=== PATIENT | female | born 1995 | race Hispanic/Latino ===

== ENCOUNTER 2020-03-18 16:45 | Emergency (ER) | payer SELFPAY ==
[2020-03-18 17:17] LABS: Hemoglobin 13.5 g/dL (12.0-16.0); Mean Corpuscular HGB CONC 33.4 g/dL (32.0-36.0); Mean Corpuscular Hemoglobin 32.5 pg (27.0-31.0); Mean Corpuscular Volume 97.3 fL (78.0-98.0); Platelet Count 265 thou/uL (130-400); RBC Distribution Width 14.6 % (11.5-14.5); Red Blood Cell (RBC) Count 4.15 mill/uL (4.20-5.40)
[2020-03-18 17:39] LABS: Bilirubin Negative (Negative); Blood, Urine Negative (Negative); Clarity Clear (Clear); Glucose, Urine (Dipstick) Normal (Negative); Leukocyte Negative Leu/uL (Negative); Nitrite Negative (Negative); Protein, Urine (Dipstick) Negative (Neg-Trace); Urobilinogen Normal mg/dL (Less than 2)
[2020-03-18 17:41] LABS: Band 4 % (5-11); Eosinophils 1 % (0-10); Lymphocytes 55 % (21-51); MDiff Complete? YES; Monocytes 7 % (0-10); Neutrophil 15 % (42-75); Platelet Morphology Comment Appears Adequate; Polychromasia SLIGHT = 2-3 cells (100X) (0-2/hpf); Reactive Lymphocytes 16 % (0-10); Target Cells SLIGHT = 2-5 cells (100X) (0-1/hpf)
[2020-03-18 17:44] LABS: ALT (SGPT) 79 U/L (8-55); AST (SGOT) 164 U/L (5-34); Albumin 4.4 g/dL (3.5-5.0); Alkaline Phosphatase 252 U/L (40-110); Anion Gap 20 mmol/L (10-20); BUN (Urea Nitrogen) Less than 4 mg/dL (7.0-18.7); Bilirubin, Total 2.8 mg/dL (0.2-1.2); Calc. Creatinine Clearance 0 mL/min (70-130); Calcium 9.7 mg/dL (7.8-10.44); Carbon Dioxide 19 mmol/L (22-29); Chloride 108 mmol/L (98-107); Estimated GFR-MDRD Greater than 90; Globulin 4.1 g/dL (2.4-3.5); Glucose 95 mg/dL (70-105); Magnesium 2.2 mg/dL (1.6-2.6); Protein, Total 8.5 g/dL (6.0-8.3); Sodium 143 mmol/L (136-145)
[2020-03-18] MEDS ORDERED: Ondansetron ODT 4 MG TAB ONE (17:53)
--- NOTE | 2020-03-18 17:59 | RAD ---
Chest one view HISTORY: Dyspnea. Dizzy. FINDINGS: Cardiac silhouette is magnified by projection. Pulmonary vasculature is unremarkable. Mediastinum is midline. No lobar consolidation or evidence of pneumothorax. IMPRESSION : No active cardiopulmonary abnormalities are demonstrated.
[2020-03-18 18:03] LABS: Pregnancy Test - Urine (BHCG) Negative (Negative); Pregu Control Background? CLEAR/WHITE (CLR/WHITE); Pregu Control Bar Appear? YES (CONTROL BAR); Specific Gravity 1.003 (1.002-1.036)
--- NOTE | 2020-03-18 18:56 | ULT ---
Sonogram right upper quadrant HISTORY: Right upper quadrant pain. FINDINGS: Gallbladder has normal appearance without stone. Common duct is 0.3 cm. Liver unremarkable without focal mass or intrahepatic biliary dilatation. No free fluid. IMPRESSION : Normal exam.
[2020-03-18 19:42] LABS: MONO NEGATIVE CONTROL ZONE White (Negative) (White); MONO POSITIVE CONTROL Pink Line (Positive) (PINK/RED); Mononucleosis NEGATIVE (NEGATIVE)
--- NOTE | 2020-03-25 12:59 | EKG ---
Test Reason : Blood Pressure : / mmHG Vent. Rate : 100 BPM Atrial Rate : 100 BPM P-R Int : 144 ms QRS Dur : 086 ms QT Int : 352 ms P-R-T Axes : 059 040 036 degrees QTc Int : 454 ms Normal sinus rhythm Normal ECG Confirmed by DENISE RUSH DO ([id number]), index editor LUCITA VAUGHAN ([id number]) on 03/25/2020 12:59:22 PM Referred By: Confirmed By:DENISE RUSH DO
== END 2020-03-18 21:07 | disposition home or self-care (01) ==
LOC: ERS 16:45
DX: R74.8 Abnormal levels of other serum enzymes (principal); R53.81 Other malaise; D64.9 Anemia, unspecified
CPT/HCPCS: 36415; 71045; 76705; 80053; 81003; 81025; 83605; 83735; 84484; 85025; 86308; 93005; 94760; Q0162